=== PATIENT | female | born 1990 ===

== ENCOUNTER 2019-12-12 05:40 | Inpatient (IN) | payer OTHER ==
[2019-12-12 06:13] VITALS: BMI 29.2
[2019-12-12] MEDS ORDERED: HYDROcodone/Acetaminophen 5/325 mg Tablet PO PRN ×3 (06:29→16:21)
[2019-12-12] MEDS ORDERED: Acetaminophen 500 MG TAB PO PRN (06:29)
[2019-12-12] MEDS ORDERED: Lidocaine 1% (PF) 30 ML VIAL SC PRN (06:29)
[2019-12-12] MEDS ORDERED: Methylergonovine 0.2 MG/ML VIAL IM PRN (06:29)
[2019-12-12] MEDS ORDERED: Ibuprofen 800 MG TAB PO PRN (06:29)
[2019-12-12] MEDS ORDERED: Butorphanol Tartrate 1 MG/ML VIAL SLOW IVP PRN (06:29)
[2019-12-12] MEDS ORDERED: Misoprostol 200 MCG TAB PR PRN (06:29)
[2019-12-12] MEDS ORDERED: hydrALAZINE 20 MG/ML VIAL SLOW IVP PRN ×2 (06:29→16:21)
[2019-12-12] MEDS ORDERED: Carboprost 250 MCG/ML AMP IM PRN (06:29)
[2019-12-12] MEDS ORDERED: Ondansetron PF 4 MG/2 ML Vial IVP PRN ×2 (06:29→09:26)
[2019-12-12] MEDS ORDERED: Promethazine HCl 25 MG/ML VIAL IM PRN ×2 (06:29→09:26)
[2019-12-12] MEDS ORDERED: Diphenoxylate HCl/Atropine Tablet PO PRN (06:29)
[2019-12-12] MEDS ORDERED: NS w/ Oxytocin 10 units 500 ML IV SCH (06:30)
[2019-12-12] MEDS: Lactated Ringer's 1,000 ML IV SCH ×3 (06:46→11:30)
[2019-12-12 06:54] LABS: Hemoglobin 12.3 g/dL (12.0-16.0); Mean Corpuscular HGB CONC 34.5 g/dL (32.0-36.0); Mean Corpuscular Volume 89.7 fL (78.0-98.0); Mean Platelet Volume 9.4 fL (7.4-10.4); Platelet Count 185 thou/uL (130-400); Red Blood Cell (RBC) Count 3.98 mill/uL (4.20-5.40); White Blood Cell (WBC) Count 8.4 thou/uL (4.8-10.8)
[2019-12-12 07:33] LABS: Syphilis Antibody Nonreactive (Nonreactive); Syphilis Antibody Index 0.04 S/CO (<1.00 Non-Reactive)
[2019-12-12 07:34] LABS: HBSAg Index 0.22 S/CO (0-0.99); Hep B Surf Ag Non-Reactive S/CO (NonReactive)
[2019-12-12] MEDS ORDERED: Fentanyl 4 mcg/Bup 0.1% Cadd 100 ML ONE (08:05)
--- NOTE | 2019-12-12 08:18 | PDOC.LDHP ---
Labor and Delivery H&P Chief complaint: scheduled induction HPI: 29yo at 39w0d by LMP here for elective IOL. No complaints Current gestational age (weeks): 39 Due date: 12/19/19 Dating criteria: last menstrual period Grav: 3 Para: 2 Current complications: none Abnormal US findings: No Past Medical History: denies Current medications: pre- vitamins Previous surgical history: none Allergies/Adverse Reactions: Allergies Allergy/AdvReac Type Severity Reaction Status Date / Time No Known Allergies Allergy Verified 12/12/19 06:08 Social history: none - Physical Exam Vital signs reviewed and normal: yes General: NAD Heart: RRR Lungs: CTAB Abdomen: gravid Extremeties: no edema FHT: category 1 [place] contractions every: 3min - Vaginal Exam cm dilated: 4 Effacement: 75% Station: -2 (arom clear) - OB Labs Blood type: O RH: positive Antibody Screen: negative HIV: negative RPR: negative HEPSAg: negative 1 hour GCT: negative GBS: negative Urine drug screen: negative Rubella: immune - Assessment L&D Assessment: elective induction at term - Plan Plan: admit to L&D, labor augmentation if indicated, informed consent obtained, anesthesia consult for pain management
[2019-12-12] MEDS ORDERED: Lactated Ringer's 500 ML IV PRN (09:26)
[2019-12-12] MEDS ORDERED: Acetaminophen 325 MG TAB PO PRN (09:26)
[2019-12-12] MEDS ORDERED: EPHEDRINE 25 MG/5 ML SYRINGE SLOW IVP PRN (09:26)
[2019-12-12] MEDS ORDERED: Naloxone HCl 0.4 mg/ml Vial IVP PRN ×2 (09:26)
[2019-12-12] MEDS ORDERED: diphenhydrAMINE 50 MG/ML VIAL IVP PRN (09:26)
[2019-12-12] MEDS ORDERED: Fentanyl 4 mcg/Bupivacaine 0.1% Cassette 100 ML EPIDURAL SCH (09:30)
[2019-12-12] MEDS ORDERED: Communication Order-Pharmacy FS SCH (09:30)
[2019-12-12] MEDS: NS / Oxytocin 40 units/1000ml 1,000 ML IV PRN ×2 (12:53→15:54)
[2019-12-12] MEDS ORDERED: Bupivacaine 0.25% HCL 30 ML VIAL ONE (13:11)
--- NOTE | 2019-12-12 14:54 | PDOC.OPDEL ---
OB Operative/Delivery Note Delivery Dr/Surgeon: Mary Assist: n/a Pre-Delivery Diagnosis: elective induction Procedure/Post Delivery Dx: spontaneous vaginal delivery Weeks gestation: 39 Anesthesia: epidural - Findings A Sex: male - 1 min: 9 - 5 min: 10 - Additional Findings/Plan Placenta delivered: spontaneous Repaired Obstetrical Laceration: none Estimated blood loss: 350cc Compilations/Other Findings: NC x 1 Post delivery plan: routine recovery
[2019-12-12] MEDS ORDERED: Benzocaine-Menthol 82.5 ML CAN TOP PRN (16:21)
[2019-12-12] MEDS ORDERED: diphenhydrAMINE 25 MG CAP PO PRN (16:21)
[2019-12-12] MEDS ORDERED: Preparation H Ointment 28 GM TUBE PR PRN (16:21)
[2019-12-12] MEDS ORDERED: Lanolin Ointment 7 GM TUBE TOP PRN (16:21)
[2019-12-12] MEDS ORDERED: Milk Of Magnesia 30 ML UDCUP PO PRN (16:21)
[2019-12-12] MEDS ORDERED: NS / Oxytocin 40 units/1000ml 1,000 ML IV SCH (16:21)
[2019-12-12] MEDS ORDERED: Bisacodyl 10 MG SUPP PR PRN (16:21)
[2019-12-12] MEDS: Ibuprofen 800 MG TAB PO SCH (17:12)
[2019-12-12] MEDS: Ferrous Sulfate 325 MG TAB PO SCH (18:04)
[2019-12-12] MEDS: Docusate Calcium (SURFAK) 240 MG CAP PO SCH (21:19)
[2019-12-13] MEDS: Ibuprofen 800 MG TAB PO SCH ×2 (01:46→14:12)
[2019-12-13] MEDS: Docusate Calcium (SURFAK) 240 MG CAP PO SCH (08:42)
[2019-12-13] MEDS ORDERED: Adacel (T-DAP) 0.5 ML SYRINGE IM ONE (09:00)
[2019-12-13] MEDS ORDERED: Prenatal Vitamin 1 TAB PO SCH (09:00)
[2019-12-13 09:16] VITALS: TEMP 98.1
[2019-12-13] MEDS: Ferrous Sulfate 325 MG TAB PO SCH (10:05)
[2019-12-13 11:53] VITALS: BP 119/72
--- NOTE | 2019-12-13 13:50 | PDOC.PP ---
Post Progress Note Post Day #: 1 PO intake tolerated: yes Flatus: yes Ambulation: yes Vital Signs (12 hours) Temp Pulse Resp BP Pulse Ox 12/13/19 11:20 98.1 F 104 H 18 119/72 12/13/19 08:05 98.1 F 86 20 104/61 97 12/13/19 05:45 98.3 F 88 16 111/53 L Weight Weight 150 lb - Physical Examination General: NAD Respiratory: non-labored breathing Abdominal: no distention, appropriately TTP Fundus firm & at: U-2 Skin: no rash Neurological: no gross focal deficits Psychiatric: normal affect Result Diagrams: 12/12/19 06:35 Additional Labs: Post Labs Blood Type O POSITIVE 12/12/19 07:17 Hep Bs Antigen Non-Reactive S/CO (NonReactive) 12/12/19 06:35 - Assessment/Plan PPD1 s/p TSVD VSSAF Doing well, lochia rubra Rh pos RImm DC home fu 6w
== END 2019-12-13 16:45 | disposition home or self-care (01) | DRG 807 ==
LOC: L&D/OP 05:40 → L&D 05:49 → 3SW 16:45
PROVIDERS: ADMIT Student in an Organized Health Care Education/Training Program; ATTEND Student in an Organized Health Care Education/Training Program
PROC: 10E0XZZ Delivery of Products of Conception, External Approach (ICD-10-PCS; principal; 2019-12-12)
PROC: 10907ZC Drainage of Amniotic Fluid, Therapeutic from Products of Conception, Via Natural or Artificial Opening (ICD-10-PCS; 2019-12-12)
PROC: 3E033VJ Introduction of Other Hormone into Peripheral Vein, Percutaneous Approach (ICD-10-PCS; 2019-12-12)
DX: O69.81X0 Labor and delivery complicated by cord around neck, without compression, not applicable or unspecified (principal); Z37.0 Single live birth; Z3A.39 39 weeks gestation of pregnancy
CPT/HCPCS: 36415; 51702; 85027; 86780; 86850; 86900; 86901; 87340; J2590; S0020